=== PATIENT | female | born 1935 | race Caucasian/White ===

== ENCOUNTER 2019-05-13 09:15 | Observation (INO) ==
[2019-05-13] MEDS ORDERED: 0.9 % Sodium Chloride 1,000 ML IVC ONE (09:27)
--- NOTE | 2019-05-13 09:42 | Emergency Department Note ---
Disposition Clinical Impression: Altered mental status Qualifiers: Altered mental status type: disorientation Qualified Code(s): R41.0 - Disorientation, unspecified Fever Qualifiers: Fever type: unspecified Qualified Code(s): R50.9 - Fever, unspecified Disposition: Admitted As Inpatient Condition: Fair Referrals: Julito Kim MD [Primary Care Provider] - Forms: ED Satisfaction Letter Time of Disposition: 13:04 Altered Mental Status HPI - General Chief Complaint: ED Altered Mental Status Stated Complaint: AMS Time Seen by Provider: 05/13/19 09:17 Source: patient, EMS, other (care home reported) Mode of arrival: EMS Limitations: no limitations Nursing Notes Reviewed: Yes Vital Signs Reviewed: Yes - History of Present Illness complaint: altered mental status, weakness 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 She was seen in bed throat after 7:00 and then a little while later when he went by again she was on the floor. Patient knows that she ended up on the floor which she cannot really explain why what happened. Here in the form the patient is not complaining of any pain anywhere.) - Related Data Home Medications Medication Instructions Recorded Confirmed Phenytoin ER [Dilantin ER] 100 mg PO TID 04/22/16 05/13/19 Loratadine [Allergy Relief] 10 mg PO DAILY 02/16/18 05/13/19 Aspirin [Lo-Dose Aspirin EC] 81 mg PO DAILY 05/13/19 05/13/19 Lisinopril [Zestril] 10 mg PO DAILY 05/13/19 05/13/19 Sertraline [Zoloft] 25 mg PO DAILY 05/13/19 05/13/19 Allergies Allergy/AdvReac Type Severity Reaction Status Date / Time aspirin AdvReac See Verified 02/16/18 12:58 Comments All systems ED: reviewed and negative except as stated. ENT ED: Denies: ear pain, congestion Cardiovascular: Denies: chest pain Respiratory: Denies: dyspnea Gastrointestinal: Denies: abdominal pain, nausea, vomiting Musculoskeletal: Denies: back pain Neurological: Denies: headache Past Medical History - Past Medical History Attestation: Yes The following information was validated with the patient. Source: patient, old records reviewed, nursing notes reviewed Medical history: Reports: CVA, dementia, GERD, hyperlipidemia, hypertension, seizures Surgical history: Reports: cholecystectomy, hysterectomy Psychiatric history: Reports: no psych history - Social History Smoking Status: Never smoker Smokeless Tobacco Status: No Alcohol use: Reports: none Drug use: Reports: none Physical Exam - General Limitations: no limitations General appearance: other (Patient is obviously tired and a little groggy but will answer questions appropriately and follows commands appropriately.) - Head Head exam: atraumatic, normocephalic, normal inspection - Eye Eye exam: Present: normal appearance, PERRL, EOMI. Absent: scleral icterus, conjunctival injection - ENT ENT exam: normal exam, normal oropharynx, mucous membranes moist, normal external ear exam - Neck Neck exam: Present: normal inspection, full ROM, trachea midline. Absent: meni ngismus - Chest Chest inspection: Present: normal inspection, symmetric chest wall rise. Absent: tenderness - Respiratory Respiratory exam: Present: normal lung sounds bilaterally. Absent: respiratory distress, wheezes - Cardiovascular Cardiovascular exam: Present: regular rate, normal rhythm, normal heart sounds - Abdominal Exam Abdominal exam: Present: soft, Non-Tender, normal bowel sounds - Extremities Exam Extremities exam: Present: normal inspection. Absent: pedal edema - Neurological Exam Neurological exam: Present: alert, other (Generalized weakness that is nonfocal) - Psychiatric Psychiatric exam: Present: normal affect, normal mood - Skin Skin exam: Present: warm, dry. Absent: rash Course Course Narrative: [facility] Apparently the downtime was short lived because she was just seen in her bed shortly before being found on the floor. She felt warm to me so we rechecked her temperature rectally and she was 100.5. I am not finding anything that looks like a focal neuro deficit to make me think stroke. I suspect this is probably related to whatever's causing the fever. We will get a workup going on the patient and disposition will be based on diagnostic results and reevaluation. - Reevaluation(s) Reevaluation #1: Lab work came back not really sure me a source of infection. Urine is okay. Chest x-ray is clear. White count is okay. Lactate is good. Patient seemed to be improving but then seemed to become confused again. Repeat temperature rectally was 100.1. I had already Spoken with Dr. Ocasio, the hospitalist and arrange to have the patient admitted while source was determined. Initially we were not to start any antibiotics. However the patient seemed a little bit more confused so I went ahead and did an LP. The fluid looked clear to the eye. They will be running that fluid here. Has to be sent [facility] to [facility]. This could create a long delay so rather than wait I went ahead and empirically gave her a gram of Rocephin and a dose of acyclovir. Patient will still be admitted to the hospital. Time: 13:00 - Consultations Consultation #1: Dr. Ocasio, hospitalist. I discussed case with the hospitalist. He accepted the patient for admission. Time: 11:40 Vital Signs Temperature 99.6 F 05/13/19 09:16 Pulse Rate 97 05/13/19 09:16 Respiratory Rate 17 05/13/19 09:16 Blood Pressure 147/68 05/13/19 09:16 O2 Sat by Pulse Oximetry 95 05/13/19 09:16 Temperature 100.5 F H 05/13/19 09:54 Pulse Rate 92 05/13/19 12:59 Respiratory Rate 20 05/13/19 12:59 Blood Pressure 143/69 05/13/19 12:59 O2 Sat by Pulse Oximetry 98 05/13/19 12:59 Oxygen Delivery Oxygen Delivery Nasal Cannula Procedures - Lumbar Puncture Patient Position: left lateral decubitus Skin Prep: Povidone-Iodine 1% Local Anesthetic: lidocaine 1% Spinal Needle Gauge: 20G Interspace Used: L3-L4 Fluid Initially Obtained: clear Complications: none Altered Mental Status - Medical Records Medical records reviewed: Yes I reviewed the patient's medical records. - Lab Data Lab results reviewed: Yes I reviewed the patient's lab results. Result diagrams: 05/13/19 09:53 05/13/19 09:53 Lab Results 05/13/19 05/13/19 05/13/19 Range/Units 09:40 09:53 09:53 WBC 6.1 (4.3-11.1) K/mcL RBC 4.49 (3.82-4.97) M/mcL Hgb 14.3 (11.5-15.4) g/dL Hct 42.5 (35.3-44.9) % MCV 94.7 (83.0-100.0) fL MCH 31.8 (28.0-33.3) pg MCHC 33.6 (31.6-35.5) g/dL RDW 13.9 (11.5-14.5) % Plt Count 152 (140-400) K/mcL MPV 9.1 L (9.4-12.4) fL Immature Gran % 0.7 (0-4) % Seg Neutrophils % 81.3 % Lymphocytes % 11.6 % Monocytes % 5.2 % Eosinophils % 0.7 % Basophils % 0.5 % Neutrophils # 5.0 (1.6-8.9) K/mcL Lymphocytes # 0.7 (0.6-4.6) K/mcL Monocytes # 0.3 (0.0-1.3) K/mcL Eosinophils # 0.0 (0.0-0.6) K/mcL Basophils # 0.0 (0.0-0.2) K/mcL PT 12.2 H (9.4-12.1) Seconds INR 1.1 APTT 44.5 H (26.0-36.0) Seconds Sodium (136-145) mEq/L Potassium (3.5-5.1) mEq/L Chloride (98-107) mEq/L Carbon Dioxide (23-29) mEq/L BUN (8-23) mg/dL Creatinine (0.60-1.20) mg/dL Est GFR ( Amer) (> 60) Est GFR (Non-Af Amer) (> 60) BUN/Creatinine Ratio (6-26) Glucose (70-105) mg/dL Calculated Osmolality (280-300) Lactic Acid (0.5-2.2) mmol/L Calcium (8.6-10.3) mg/dL Total Bilirubin (0.3-1.0) mg/dL Direct Bilirubin (0.0-0.2) mg/dL Indirect Bilirubin (0.0-1.2) mg/dL AST (13-39) Units/L ALT (7-52) Units/L Alkaline Phosphatase (34-104) Units/L Troponin I (< 0.04) ng/mL B-Natriuretic Peptide (Less than 100) pg/mL Serum Total Protein (6.4-8.9) g/dL Albumin (3.5-5.7) g/dL Globulin (2.4-3.5) g/dL Albumin/Globulin Ratio (1.1-2.2) Urine Color Light Yellow (Yellow) Urine Clarity Clear (Clear) Urine pH 8.5 H (5.0-8.0) pH Units Ur Specific [place] 1.020 (1.010-1.025) Urine Protein Negative (Neg-Trace) mg/dL Urine Glucose (UA) Normal (Normal) mg/dL Urine Ketones Negative (Negative) mg/dL Urine Blood Trace-intact H (Negative) Urine Nitrite Negative (Negative) Urine Bilirubin Negative (Negative) Urine Urobilinogen Normal (Normal) mg/dL Ur Leukocyte Esterase Negative (Negative) Urine Microscopic RBC 3-5 H (0-3) per hpf Urine Microscopic WBC 0-3 (0-3) per hpf Ur Squamous Epith Cells Few (None-Few) per lpf Ur Culture Indicated? NO (NO) 05/13/19 05/13/19 05/13/19 Range/Units 09:53 09:53 09:53 WBC (4.3-11.1) K/mcL RBC (3.82-4.97) M/mcL Hgb (11.5-15.4) g/dL Hct (35.3-44.9) % MCV (83.0-100.0) fL MCH (28.0-33.3) pg MCHC (31.6-35.5) g/dL RDW (11.5-14.5) % Plt Count (140-400) K/mcL MPV (9.4-12.4) fL Immature Gran % (0-4) % Seg Neutrophils % % Lymphocytes % % Monocytes % % Eosinophils % % Basophils % % Neutrophils # (1.6-8.9) K/mcL Lymphocytes # (0.6-4.6) K/mcL Monocytes # (0.0-1.3) K/mcL Eosinophils # (0.0-0.6) K/mcL Basophils # (0.0-0.2) K/mcL PT (9.4-12.1) Seconds INR APTT (26.0-36.0) Seconds Sodium 139 (136-145) mEq/L Potassium 4.2 (3.5-5.1) mEq/L Chloride 104 (98-107) mEq/L Carbon Dioxide 27 (23-29) mEq/L BUN 15 (8-23) mg/dL Creatinine 0.71 (0.60-1.20) mg/dL Est GFR ( Amer) > 60 (> 60) Est GFR (Non-Af Amer) > 60 (> 60) BUN/Creatinine Ratio 21 (6-26) Glucose 119 H (70-105) mg/dL Calculated Osmolality 290 (280-300) Lactic Acid 1.0 (0.5-2.2) mmol/L Calcium 9.0 (8.6-10.3) mg/dL Total Bilirubin 0.6 (0.3-1.0) mg/dL Direct Bilirubin 0.1 (0.0-0.2) mg/dL Indirect Bilirubin 0.5 (0.0-1.2) mg/dL AST 18 (13-39) Units/L ALT 14 (7-52) Units/L Alkaline Phosphatase 120 H (34-104) Units/L Troponin I 0.04 H* (< 0.04) ng/mL B-Natriuretic Peptide 404 H (Less than 100) pg/mL Serum Total Protein 6.6 (6.4-8.9) g/dL Albumin 4.1 (3.5-5.7) g/dL Globulin 2.5 (2.4-3.5) g/dL Albumin/Globulin Ratio 1.6 (1.1-2.2) Urine Color (Yellow) Urine Clarity (Clear) Urine pH (5.0-8.0) pH Units Ur Specific [place] (1.010-1.025) Urine Protein (Neg-Trace) mg/dL Urine Glucose (UA) (Normal) mg/dL Urine Ketones (Negative) mg/dL Urine Blood (Negative) Urine Nitrite (Negative) Urine Bilirubin (Negative) Urine Urobilinogen (Normal) mg/dL Ur Leukocyte Esterase (Negative) Urine Microscopic RBC (0-3) per hpf Urine Microscopic WBC (0-3) per hpf Ur Squamous Epith Cells (None-Few) per lpf Ur Culture Indicated? (NO) 05/13/19 Range/Units 11:55 WBC (4.3-11.1) K/mcL RBC (3.82-4.97) M/mcL Hgb (11.5-15.4) g/dL Hct (35.3-44.9) % MCV (83.0-100.0) fL MCH (28.0-33.3) pg MCHC (31.6-35.5) g/dL RDW (11.5-14.5) % Plt Count (140-400) K/mcL MPV (9.4-12.4) fL Immature Gran % (0-4) % Seg Neutrophils % % Lymphocytes % % Monocytes % % Eosinophils % % Basophils % % Neutrophils # (1.6-8.9) K/mcL Lymphocytes # (0.6-4.6) K/mcL Monocytes # (0.0-1.3) K/mcL Eosinophils # (0.0-0.6) K/mcL Basophils # (0.0-0.2) K/mcL PT (9.4-12.1) Seconds INR APTT (26.0-36.0) Seconds Sodium (136-145) mEq/L Potassium (3.5-5.1) mEq/L Chloride (98-107) mEq/L Carbon Dioxide (23-29) mEq/L BUN (8-23) mg/dL Creatinine (0.60-1.20) mg/dL Est GFR ( Amer) (> 60) Est GFR (Non-Af Amer) (> 60) BUN/Creatinine Ratio (6-26) Glucose (70-105) mg/dL Calculated Osmolality (280-300) Lactic Acid (0.5-2.2) mmol/L Calcium (8.6-10.3) mg/dL Total Bilirubin (0.3-1.0) mg/dL Direct Bilirubin (0.0-0.2) mg/dL Indirect Bilirubin (0.0-1.2) mg/dL AST (13-39) Units/L ALT (7-52) Units/L Alkaline Phosphatase (34-104) Units/L Troponin I 0.04 H* (< 0.04) ng/mL B-Natriuretic Peptide (Less than 100) pg/mL Serum Total Protein (6.4-8.9) g/dL Albumin (3.5-5.7) g/dL Globulin (2.4-3.5) g/dL Albumin/Globulin Ratio (1.1-2.2) Urine Color (Yellow) Urine Clarity (Clear) Urine pH (5.0-8.0) pH Units Ur Specific [place] (1.010-1.025) Urine Protein (Neg-Trace) mg/dL Urine Glucose (UA) (Normal) mg/dL Urine Ketones (Negative) mg/dL Urine Blood (Negative) Urine Nitrite (Negative) Urine Bilirubin (Negative) Urine Urobilinogen (Normal) mg/dL Ur Leukocyte Esterase (Negative) Urine Microscopic RBC (0-3) per hpf Urine Microscopic WBC (0-3) per hpf Ur Squamous Epith Cells (None-Few) per lpf Ur Culture Indicated? (NO) - Radiology Data Radiology results reviewed: Yes I reviewed the patient's radiology results. - EKG Data EKG attestation: Yes I reviewed and interpreted this EKG. EKG results narrative: Twelve-lead EKG performed at 9:21 AM. Ordered, reviewed and interpreted by ED physician shows sinus rhythm at a rate of 97. Left axis deviation. Good hour progression across precordium. No acute ischemic changes. Intervals are within normal limits. TPA Checklist - LKW: 3-4.5 hrs Add. Warnings/Precautions Patient/family understanding: The patient/family members have been counseled and understood the risk, benefit, and alternatives of treatment.
[2019-05-13 09:54] LABS: Bilirubin,Urine Negative (Negative); Blood,Urine Trace-intact (Negative); Clarity,Urine Clear (Clear); Color,Urine Light Yellow (Yellow); Glucose,Urine (UA) Normal (Normal); Ketones,Urine Negative (Negative); Leukocyte Esterase,Urine Negative (Negative); Nitrite,Urine Negative (Negative); PH,Urine 8.5 pH Units (5.0-8.0); Protein,Urine Negative (Neg-Trace); Urobilinogen,Urine Normal (Normal)
[2019-05-13 10:00] LABS: Basophils % 0.5 %; Eosinophils % 0.7 %; Hematocrit 42.5 % (35.3-44.9); Hemoglobin 14.3 g/dL (11.5-15.4); Immature Granulocytes % 0.7 % (0-4); Lymphocytes # 0.7 K/mcL (0.6-4.6); Lymphocytes % 11.6 %; Mean Corpuscular HGB Conc 33.6 g/dL (31.6-35.5); Mean Corpuscular Hemoglobin 31.8 pg (28.0-33.3); Mean Corpuscular Volume 94.7 fL (83.0-100.0); Mean Platelet Volume 9.1 fL (9.4-12.4); Monocytes # 0.3 K/mcL (0.0-1.3); Monocytes % 5.2 %; Platelet Count 152 K/mcL (140-400); Red Blood Count 4.49 M/mcL (3.82-4.97); Red Cell Distribution Width 13.9 % (11.5-14.5); Segmented Neutrophils % 81.3 %; White Blood Count 6.1 K/mcL (4.3-11.1)
[2019-05-13 10:09] LABS: INR 1.1; Prothrombin Time 12.2 Seconds (9.4-12.1)
[2019-05-13 10:12] LABS: Activated Partial Thrombo Time 44.5 Seconds (26.0-36.0)
[2019-05-13 10:17] LABS: Alanine Aminotransferase 14 Units/L (7-52); Albumin 4.1 g/dL (3.5-5.7); Albumin/Globulin Ratio 1.6 (1.1-2.2); Alkaline Phosphatase 120 Units/L (34-104); Aspartate Amino Transferase 18 Units/L (13-39); BUN/Creatinine Ratio 21 (6-26); Bilirubin,Direct 0.1 mg/dL (0.0-0.2); Bilirubin,Indirect 0.5 mg/dL (0.0-1.2); Bilirubin,Total 0.6 mg/dL (0.3-1.0); Blood Urea Nitrogen 15 mg/dL (8-23); Carbon Dioxide 27 mEq/L (23-29); Chloride 104 mEq/L (98-107); Globulin 2.5 g/dL (2.4-3.5); Glucose 119 mg/dL (70-105); Osmolality,Calculated 290 (280-300); Potassium 4.2 mEq/L (3.5-5.1); Sodium 139 mEq/L (136-145); Total Protein 6.6 g/dL (6.4-8.9); eGFR For African Americans > 60 (> 60); eGFR For Non-African Americans > 60 (> 60)
[2019-05-13 10:33] LABS: Troponin I 0.04 ng/mL (< 0.04)
[2019-05-13 10:36] LABS: Squamous Epithelial Cell,Urine Few per lpf (None-Few); WBC,Urine 0-3 per hpf (0-3)
[2019-05-13] MEDS ORDERED: 0.9 % Sodium Chloride 1,000 ML IVC SCH ×2 (11:30→13:59)
[2019-05-13] MEDS ORDERED: Acyclovir 500 MG in D5% in Water 100 ML IVPB ONE ×3 (12:57→13:59)
[2019-05-13] MEDS ORDERED: Acetaminophen 650 MG RECTAL SUPP RC ONE (12:58)
[2019-05-13 13:26] LABS: Glucose,CSF 71 mg/dL (40-70); Total Protein,CSF 71 mg/dL (15-45)
[2019-05-13 13:58] LABS: Appearance,CSF Clear (Clear)
[2019-05-13] MEDS ORDERED: Naloxone 0.4 MG/ML INJ IVP PRN (13:59)
[2019-05-13 14:00] LABS: Red Blood Cell,CSF < 0.002 M/mcL
[2019-05-13] MEDS: 0.9 % Sodium Chloride 1,000 ML IVC SCH ×2 (14:57→19:54)
[2019-05-14] MEDS: 0.9 % Sodium Chloride 1,000 ML IVC SCH (01:37)
[2019-05-14 06:51] LABS: Basophils % 0.5 %; Eosinophils # 0.2 K/mcL (0.0-0.6); Hematocrit 39.2 % (35.3-44.9); Hemoglobin 12.9 g/dL (11.5-15.4); Immature Granulocytes % 0.3 % (0-4); Lymphocytes # 1.3 K/mcL (0.6-4.6); Lymphocytes % 21.3 %; Mean Corpuscular HGB Conc 32.9 g/dL (31.6-35.5); Mean Corpuscular Volume 97.3 fL (83.0-100.0); Mean Platelet Volume 9.8 fL (9.4-12.4); Monocytes # 0.7 K/mcL (0.0-1.3); Monocytes % 11.4 %; Neutrophils # 3.8 K/mcL (1.6-8.9); Platelet Count 126 K/mcL (140-400); Red Blood Count 4.03 M/mcL (3.82-4.97); Red Cell Distribution Width 14.3 % (11.5-14.5); Segmented Neutrophils % 62.5 %; White Blood Count 6.1 K/mcL (4.3-11.1)
[2019-05-14 07:03] LABS: BUN/Creatinine Ratio 21 (6-26); Blood Urea Nitrogen 13 mg/dL (8-23); Calcium 8.5 mg/dL (8.6-10.3); Carbon Dioxide 24 mEq/L (23-29); Chloride 107 mEq/L (98-107); Glucose 94 mg/dL (70-105); Osmolality,Calculated 286 (280-300); Potassium 3.6 mEq/L (3.5-5.1); Sodium 138 mEq/L (136-145); eGFR For African Americans > 60 (> 60); eGFR For Non-African Americans > 60 (> 60)
[2019-05-14] MEDS: Aspirin Enteric Coated 81 MG Tablet PO SCH (09:15)
--- NOTE | 2019-05-14 15:20 | Internal Med History&Physical ---
Date of Encounter: 05/14/19 Time of Encounter: 14:45 Assessment and Plan (1) Syncope Current visit: Yes Status: Acute Etiology not obvious. Orthostatic vital signs will be checked. Telemetry monitoring will be done. Further workup done as needed. Qualifiers: Syncope type: unspecified Qualified Code(s): R55 - Syncope and collapse (2) Fall Current visit: Yes Status: Acute Brain MRI will be done to further evaluate. PT and OT evaluations been ordered. Qualifiers: Encounter type: initial encounter Qualified Code(s): W19.XXXA - Unspecified fall, initial encounter (3) Altered mental status Current visit: Yes Status: Acute Baseline unknown. MMSE exam will be done. Qualifiers: Altered mental status type: disorientation Qualified Code(s): R41.0 - Disorientation, unspecified (4) Conjunctivitis Current visit: Yes Status: Acute TobraDex eyedrops will be given for right eye infection. Qualifiers: Conjunctivitis type: acute Acute conjunctivitis type: unspecified Laterality: right Qualified Code(s): H10.31 - Unspecified acute conjunctivitis, right eye Internal Medicine - H&P: HPI Chief complaint: Fall with syncope Admitted From: Emergency Dept Plans for Post Hospital Care: Home History of present illness: Ms. Rawls is a 83 year old female who was brought to emergency room after she was found on the floor at the assisted living facility where she resides. She does not remember any details about the fall or transport to the hospital. Emergency room workup included LP which showed unremarkable findings. She had fever spike to 100.8 shortly after transfer to [facility]. She was admitted to [facility] for ongoing care needs. She states she feels back to her baseline now. She knows her location and gives appropriate answers to questions. She reports she was diagnosed with seizure disorder many years ago but her last seizure was over one year ago. She reports she had a "stroke" in the past without permanent neurologic sequelae. Past Med Surg Social Fam HX - Past Medical History Medical history: CVA, dementia, GERD, hyperlipidemia, hypertension, seizures Psychiatric history: no psych history - Past Surgical History Surgical History: cholecystectomy, hysterectomy - Social History Smoking Status: Never smoker Smokeless Tobacco Status: No Alcohol use: none Drug use: none Internal Medicine - H&P: Meds Phenytoin ER [Dilantin ER] 100 mg PO TID 04/22/16 [History] Loratadine [Allergy Relief] 10 mg PO DAILY 02/16/18 [History] Aspirin [Lo-Dose Aspirin EC] 81 mg PO DAILY 05/13/19 [History] Lisinopril [Zestril] 10 mg PO DAILY 05/13/19 [History] Sertraline [Zoloft] 25 mg PO DAILY 05/13/19 [History] Allergy/AdvReac Type Severity Reaction Status Date / Time aspirin AdvReac See Verified 02/16/18 12:58 Comments All Systems PM: A 10-system review of systems was performed and is negative for pertinent findings except as documented above in the HPI. Review of systems: Gen.: She states her weight is been stable for several years Cardiovascular: She thinks she has a diagnosis of hypertension. She denies [place] heart failure angina DVT or pulmonary embolus Respiratory: She is a lifelong nonsmoker and denies chronic lung disease GI: She denies disorders of her liver gallbladder or exocrine pancreas : She denies hematuria dysuria or kidney stones Neurologic: As per history of present illness Endocrine: She denies diabetes thyroid disease or hyperlipidemia Hematology/oncology: She denies blood disorders cancers or anemia Psychiatric: She states her several months ago and she feels depressed. She denies other mental health diagnoses. [place] skeletal: She denies arthritis gout or other bone joint or muscle disorders. - Constitutional Vitals: Temp Pulse Resp BP Pulse Ox 98.7 F 72 18 138/66 99 05/14/19 11:05 05/14/19 11:05 05/14/19 11:05 05/14/19 11:05 05/14/19 11:05 Exam: Gen.: She is a well-developed well-nourished female lying quietly in bed who appears in no acute distress HEENT: Head is atraumatic and normocephalic. Eyes: EOMI. There is no scleral icterus. She has slight right eye conjunctival erythema with mucopurulent drainage. Mouth: Mucosa is moist. Neck: Supple and nontender. There is no thyromegaly or adenopathy noted. Heart: Regular without murmurs gallops or ectopics Lungs: No wheezes or crackles are heard. Abdomen: Soft and nontender. No masses or guarding are noted. Extremities: There is no cyanosis edema or clubbing noted. Dorsalis pedis and posttibial pulses are trace to 1+ palpable bilaterally. Neurologic: Mental status: She is talkative and a fair to good historian. She does not remember some details of her past history. Cranial nerves: Smile is symmetric. Forehead wrinkles bilaterally. Tongue protrudes midline. EOMI. Motor: There is no pronator drift. Cerebellar: Finger to nose is intact bilaterally. Skin: Warm and dry Internal Med - H&P Results - Labs CBC & Chem 7: 05/14/19 06:00 05/14/19 06:00 Labs: Short CBC 05/14/19 Range/Units 06:00 WBC 6.1 (4.3-11.1) K/mcL Hgb 12.9 (11.5-15.4) g/dL Hct 39.2 (35.3-44.9) % Plt Count 126 L (140-400) K/mcL Neutrophils # 3.8 (1.6-8.9) K/mcL BMP 05/14/19 06:00 Sodium 138 Potassium 3.6 Chloride 107 Carbon Dioxide 24 BUN 13 Creatinine 0.63 Glucose 94 Calcium 8.5 L Cardiac Enzymes 05/13/19 05/13/19 05/14/19 Range/Units 17:47 23:20 06:00 Troponin I 0.05 H* 0.05 H* 0.03 (< 0.04) ng/mL - Impressions ITS Impressions Chest X-Ray 05/13/19 09:26 IMPRESSION: No acute cardiopulmonary process D/ / Dougie Coombs MD / Dougie Coombs MD Interpreting Provider: Dougie Coombs MD Head CT 05/13/19 09:26 IMPRESSION: No acute intracranial abnormality. D/ / Srikanth Monson MD / Srikanth Monson MD Interpreting Provider: Srikanth Monson MD
--- NOTE | 2019-05-14 16:03 | Electrocardiograph Report ---
[place] [id number] Test Date: 2019-05-13 Pat Name: Shira Rawls Department: EDP-16 Room: [facility] Gender: F Tax Examiner: : 1935 Requested By: Jackson Richardson Order Number: [id number] Reading MD: Rene Elizondo Measurements Intervals Thelma Rate: 97 P: 204 WA: 240 QRS: -33 QRSD: 97 T: 75 QT: 354 QTc: 450 Interpretive Statements Sinus or ectopic atrial rhythm Prolonged WA interval Left axis deviation Electronically Signed On 05-14-2019 16:02:11 EDT by Rene Elizondo
[2019-05-14] MEDS: Tobramycin/Dex Opth DROPS 2.5 ML BOTTLE RIGHT EYE SCH ×2 (17:21→23:48)
[2019-05-15] MEDS: Aspirin Enteric Coated 81 MG Tablet PO SCH (08:01)
[2019-05-15] MEDS: Tobramycin/Dex Opth DROPS 2.5 ML BOTTLE RIGHT EYE SCH ×3 (08:02→22:06)
--- NOTE | 2019-05-15 12:33 | Internal Med Progress Note ---
Date of Encounter: 05/15/19 Time of Encounter: 12:20 - Assessment and plan (1) Syncope Current Visit: Yes Status: Acute Assessment and plan: May 15. Now asymptomatic. Orthostatic vital signs unremarkable. Telemetry remained stable. Qualifiers: Syncope type: unspecified Qualified Code(s): R55 - Syncope and collapse (2) Fall Current Visit: Yes Status: Acute Assessment and plan: May 15. Brain MRI showed multiple remote supratentorial and infratentorial microhemorrhages suggesting long-standing hypertension. There was diffuse cerebral volume loss and moderate chronic small vessel ischemic changes with remote lacunar infarct in the omar. PT and OT evaluations have been ordered. Qualifiers: Encounter type: initial encounter Qualified Code(s): W19.XXXA - Unspecified fall, initial encounter (3) Altered mental status Current Visit: Yes Status: Acute Assessment and plan: May 15. Mental status appears likely at baseline. MMSE showed score 12/30. Qualifiers: Altered mental status type: disorientation Qualified Code(s): R41.0 - Disorientation, unspecified (4) Conjunctivitis Current Visit: Yes Status: Acute Assessment and plan: May 15. Continue TobraDex. Qualifiers: Conjunctivitis type: acute Acute conjunctivitis type: unspecified Laterality: right Qualified Code(s): H10.31 - Unspecified acute conjunctivitis, right eye - Subjective Interval history: May 15. She has no new complaints and feels better - Constitutional Vitals: Temp Pulse Resp BP Pulse Ox 98.5 F 66 16 134/63 94 05/15/19 07:09 05/15/19 10:08 05/15/19 07:09 05/15/19 10:08 05/15/19 08:04 Exam: She is resting comfortably in bed and appears in no acute distress. Her affect is cheerful. Right eye shows decreasing conjunctivitis. I reviewed her medications and lab results. Internal Medicine: Result - Labs CBC & Chem 7: 05/14/19 06:00 05/14/19 06:00 - ABG Interpretation ABG results: PT/INR, D-dimer PT 12.2 Seconds (9.4-12.1) H 05/13/19 09:53 - Impressions Impressions Brain MRI 05/15/19 06:30 IMPRESSION: 1. No acute intracranial process identified. 2. Multiple remote supratentorial and infratentorial microhemorrhages suggesting the sequelae of longstanding hypertension. 3. Diffuse cerebral volume loss and moderate chronic small vessel ischemic changes. 4. Remote lacunar infarct within the omar. D/ / Oneil Lewis MD / Oneil Lewis MD Interpreting Provider: Oneil Lewis MD Consult Discharge Plan - Plan Referrals: Julito Kim MD [Primary Care Provider] - 1 week
[2019-05-16] MEDS: Aspirin Enteric Coated 81 MG Tablet PO SCH (09:11)
[2019-05-16] MEDS: Tobramycin/Dex Opth DROPS 2.5 ML BOTTLE RIGHT EYE SCH ×3 (09:21→22:57)
[2019-05-16] MEDS ORDERED: ALPRAZolam 0.25 MG TABLET PO ONE (14:54)
[2019-05-16] MEDS ORDERED: *HR* LORazepam 2 MG/ML VIAL IVP ONE (15:13)
--- NOTE | 2019-05-16 17:52 | Internal Med Progress Note ---
Date of Encounter: 05/16/19 Time of Encounter: 17:40 - Assessment and plan (1) Syncope Current Visit: Yes Status: Acute Assessment and plan: May 15. Now asymptomatic. Orthostatic vital signs unremarkable. Telemetry remained stable. Qualifiers: Syncope type: unspecified Qualified Code(s): R55 - Syncope and collapse (2) Fall Current Visit: Yes Status: Acute Assessment and plan: May 15. Brain MRI showed multiple remote supratentorial and infratentorial microhemorrhages suggesting long-standing hypertension. There was diffuse cerebral volume loss and moderate chronic small vessel ischemic changes with remote lacunar infarct in the omar. PT and OT evaluations have been ordered. Qualifiers: Encounter type: initial encounter Qualified Code(s): W19.XXXA - Unspecified fall, initial encounter (3) Altered mental status Current Visit: Yes Status: Acute Assessment and plan: May 15. Mental status appears likely at baseline. MMSE showed score 12/30. May 16. Significant change in the past 24 hours. CSF culture shows 2 different gram-positive cocci. She will be started empirically on IV vancomycin and Rocephin with lactobacillus. I spoke with the [facility] lab and was told CSF has been sent for PCR testing for HSV and enteroviruses. She will also be given empiric IV acyclovir pending test results. Qualifiers: Altered mental status type: disorientation Qualified Code(s): R41.0 - Disorientation, unspecified (4) Conjunctivitis Current Visit: Yes Status: Acute Assessment and plan: May 15. Continue TobraDex. Qualifiers: Conjunctivitis type: acute Acute conjunctivitis type: unspecified Laterality: right Qualified Code(s): H10.31 - Unspecified acute conjunctivitis, right eye - Subjective Interval history: May 15. She has no new complaints and feels better May 16. She has become more agitated and confused. Her daughter is in the room and reports this is a marked difference from her mother's baseline. Daughter reports her mother was walking in the hallways at the [facility] last week having gener ally appropriate conversations. - Constitutional Vitals: Temp Pulse Resp BP Pulse Ox 98.5 F 97 18 177/104 98 05/16/19 15:28 05/16/19 15:28 05/16/19 15:28 05/16/19 15:28 05/16/19 15:28 Exam: She is resting comfortably in bed. She appears slightly agitated. Neck shows no meningeal signs. Conversation is confused. There is no dysarthria or altered level of consciousness. I reviewed her medications and lab results. Internal Medicine: Result - Labs CBC & Chem 7: 05/14/19 06:00 05/14/19 06:00 - ABG Interpretation ABG results: PT/INR, D-dimer PT 12.2 Seconds (9.4-12.1) H 05/13/19 09:53 Consult Discharge Plan - Plan Referrals: Julito Kim MD [Primary Care Provider] - 1 week
[2019-05-16] MEDS: cefTRIAXone 2,000 MG in Water for inj. (sterile) 20 ML IVP SCH (18:23)
[2019-05-16] MEDS: Acyclovir 750 MG in D5% in Water 250 ML IVPB SCH (18:49)
[2019-05-16] MEDS: Lactobacillus 1 EACH CAP.SPRINK PO SCH (20:11)
[2019-05-17] MEDS: Acyclovir 750 MG in D5% in Water 250 ML IVPB SCH ×3 (02:45→18:48)
[2019-05-17 06:26] LABS: Basophils % 0.4 %; Eosinophils # 0.3 K/mcL (0.0-0.6); Eosinophils % 3.7 %; Hematocrit 36.3 % (35.3-44.9); Hemoglobin 12.7 g/dL (11.5-15.4); Immature Granulocytes % 0.1 % (0-4); Lymphocytes # 1.2 K/mcL (0.6-4.6); Mean Corpuscular Hemoglobin 32.5 pg (28.0-33.3); Mean Corpuscular Volume 92.8 fL (83.0-100.0); Mean Platelet Volume 9.6 fL (9.4-12.4); Monocytes # 0.8 K/mcL (0.0-1.3); Monocytes % 12.3 %; Neutrophils # 4.4 K/mcL (1.6-8.9); Platelet Count 143 K/mcL (140-400); Red Blood Count 3.91 M/mcL (3.82-4.97); Red Cell Distribution Width 13.8 % (11.5-14.5); Segmented Neutrophils % 65.5 %; White Blood Count 6.7 K/mcL (4.3-11.1)
[2019-05-17 06:45] LABS: Alanine Aminotransferase 15 Units/L (7-52); Albumin 3.4 g/dL (3.5-5.7); Albumin/Globulin Ratio 1.7 (1.1-2.2); Alkaline Phosphatase 94 Units/L (34-104); Aspartate Amino Transferase 19 Units/L (13-39); BUN/Creatinine Ratio 18 (6-26); Bilirubin,Total 0.4 mg/dL (0.3-1.0); Blood Urea Nitrogen 13 mg/dL (8-23); Calcium 8.4 mg/dL (8.6-10.3); Carbon Dioxide 28 mEq/L (23-29); Chloride 104 mEq/L (98-107); Glucose 105 mg/dL (70-105); Osmolality,Calculated 288 (280-300); Potassium 3.5 mEq/L (3.5-5.1); Sodium 139 mEq/L (136-145); Total Protein 5.4 g/dL (6.4-8.9); eGFR For African Americans > 60 (> 60); eGFR For Non-African Americans > 60 (> 60)
[2019-05-17 08:11] LABS: HSV 2 Glycoprotein G IgG CSF 0.02 IV (<=0.89)
[2019-05-17] MEDS: Lactobacillus 1 EACH CAP.SPRINK PO SCH ×2 (10:15→19:57)
[2019-05-17] MEDS: Aspirin Enteric Coated 81 MG Tablet PO SCH (10:15)
[2019-05-17] MEDS: Tobramycin/Dex Opth DROPS 2.5 ML BOTTLE RIGHT EYE SCH ×3 (10:24→23:11)
--- NOTE | 2019-05-17 12:36 | Internal Med Progress Note ---
Date of Encounter: 05/17/19 Time of Encounter: 12:25 - Assessment and plan (1) Syncope Current Visit: Yes Status: Acute Assessment and plan: May 15. Now asymptomatic. Orthostatic vital signs unremarkable. Telemetry remained stable. Qualifiers: Syncope type: unspecified Qualified Code(s): R55 - Syncope and collapse (2) Fall Current Visit: Yes Status: Acute Assessment and plan: May 15. Brain MRI showed multiple remote supratentorial and infratentorial microhemorrhages suggesting long-standing hypertension. There was diffuse cerebral volume loss and moderate chronic small vessel ischemic changes with remote lacunar infarct in the omar. PT and OT evaluations have been ordered. May 17. Continue therapy intervention. Qualifiers: Encounter type: initial encounter Qualified Code(s): W19.XXXA - Unspecified fall, initial encounter (3) Altered mental status Current Visit: Yes Status: Acute Assessment and plan: May 15. Mental status appears likely at baseline. MMSE showed score 12/30. May 16. Significant change in the past 24 hours. CSF culture shows 2 different gram-positive cocci. She will be started empirically on IV vancomycin and Rocephin with lactobacillus. I spoke with the [facility] lab and was told CSF has been sent for PCR testing for HSV and enteroviruses. She will also be given empiric IV acyclovir pending test results. May 17. Remains confused but does awaken and answer questions with short answers. Overall less agitated today. Continue empiric antibiotics and acyclovir while awaiting CSF results. Qualifiers: Altered mental status type: disorientation Qualified Code(s): R41.0 - Disorientation, unspecified (4) Conjunctivitis Current Visit: Yes Status: Acute Assessment and plan: May 15. Continue TobraDex. Qualifiers: Conjunctivitis type: acute Acute conjunctivitis type: unspecified Laterality: right Qualified Code(s): H10.31 - Unspecified acute conjunctivitis, right eye - Subjective Interval history: May 15. She has no new complaints and feels better May 3. She has become more agitated and confused. Her daughter is in the room and reports this is a marked difference from her mother's baseline. Daughter reports her mother was walking in the hallways at the [facility] last week having generally appropriate conversations. May 4. No new problems have arisen. - Constitutional Vitals: Temp Pulse Resp BP Pulse Ox 98.1 F 90 20 143/94 94 05/17/19 10:35 05/17/19 10:35 05/17/19 10:35 05/17/19 10:35 05/17/19 10:35 Exam: She is resting comfortably in bed. She complains of some discomfort in her right shoulder. There is no redness, effusion, or pain on movement of the right shoulder. There are no meningeal signs on neck flexion. Heart is regular without murmurs gallops or ectopics. Lungs are clear anteriorly. Extremities show no edema. I reviewed her medications and lab results. Internal Medicine: Result - Labs CBC & Chem 7: 05/17/19 05:41 05/17/19 05:41 Labs: Short CBC 05/17/19 Range/Units 05:41 WBC 6.7 (4.3-11.1) K/mcL Hgb 12.7 (11.5-15.4) g/dL Hct 36.3 (35.3-44.9) % Plt Count 143 (140-400) K/mcL Neutrophils # 4.4 (1.6-8.9) K/mcL BMP 05/17/19 05:41 Sodium 139 Potassium 3.5 Chloride 104 Carbon Dioxide 28 BUN 13 Creatinine 0.74 Glucose 105 Calcium 8.4 L Liver Function 05/17/19 Range/Units 05:41 Total Bilirubin 0.4 (0.3-1.0) mg/dL AST 19 (13-39) Units/L ALT 15 (7-52) Units/L Alkaline Phosphatase 94 (34-104) Units/L Albumin 3.4 L (3.5-5.7) g/dL - ABG Interpretation ABG results: PT/INR, D-dimer PT 12.2 Seconds (9.4-12.1) H 05/13/19 09:53 Consult Discharge Plan - Plan Referrals: Julito Kim MD [Primary Care Provider] - 1 week
[2019-05-17] MEDS: *HR* LORazepam 2 MG/ML VIAL IVP PRN ×2 (16:11→22:45)
[2019-05-17] MEDS: cefTRIAXone 2,000 MG in Water for inj. (sterile) 20 ML IVP SCH (17:06)
[2019-05-18] MEDS: Acyclovir 750 MG in D5% in Water 250 ML IVPB SCH ×2 (03:01→11:44)
[2019-05-18 06:25] VITALS: BP 128/72
[2019-05-18] MEDS: Tobramycin/Dex Opth DROPS 2.5 ML BOTTLE RIGHT EYE SCH (08:25)
[2019-05-18] MEDS: Aspirin Enteric Coated 81 MG Tablet PO SCH (09:37)
[2019-05-18] MEDS: Lactobacillus 1 EACH CAP.SPRINK PO SCH (09:37)
--- NOTE | 2019-05-18 12:10 | Discharge Summary ---
Orders not resulted at time of discharge: Pending orders 05/13/19 09:53 Culture,Blood [] Stat 05/13/19 12:52 Culture,CSF [] Stat Gram Stain [] Stat HSV 1 Glycoprotein G IgG CSF Stat HSV 2 Glycoprotein G IgG CSF Stat 05/18/19 19:30 Vancomycin,Trough Timed Date of Encounter: 05/18/19 Time of Encounter: 09:45 - Discharge Diagnosis (1) Syncope Priority: Primary Status: Acute Qualifiers: Syncope type: unspecified Qualified Code(s): R55 - Syncope and collapse (2) Fall Priority: Secondary Status: Acute Qualifiers: Encounter type: initial encounter Qualified Code(s): W19.XXXA - Unspecified fall, initial encounter (3) Altered mental status Priority: Secondary Status: Acute Qualifiers: Altered mental status type: disorientation Qualified Code(s): R41.0 - Disorientation, unspecified (4) Conjunctivitis Priority: Secondary Status: Resolved Qualifiers: Conjunctivitis type: acute Acute conjunctivitis type: unspecified Laterality: right Qualified Code(s): H10.31 - Unspecified acute conjunctivitis, right eye Hospital course: Ms. Rawls is a 83 year old female who was brought to emergency room after she was found on the floor at the assisted living facility where she resides. She does not remember any details about the fall or transport to the hospital. Emergency room workup included LP which showed unremarkable initial findings. She had fever spike to 100.8 shortly after transfer to [facility]. She was admitted to [facility] for ongoing care needs. Initial orders were written by the emergency room physician. I saw her on May 14 and performed a history and physical. She had no further syncopal or near syncopal episodes. Telemetry remained stable. The cause of her syncopal episode at the [facility] was not determined. Brain MRI was done to further evaluate altered mental status and history of falls. The MRI showed no acute intracranial process with multiple remote supratentorial and infratentorial microhemorrhages suggesting long-standing hypertension. There was remote lacunar infarct within the omar and chronic small vessel ischemic changes. On May 16 there was worsening of mental status with more lethargy and agitation/confusion. CSF culture showed 2 different gram-positive cocci. One of them was Micrococcus luteus and the other one did not have final identification at time of transfer. She was started empirically on IV vancomycin and Rocephin with lactobacillus. I spoke with the [facility] lab and was told CSF had been sent for PCR testing for HSV and enterovirus. These results were pending at time of transfer. She was started on IV acyclovir empirically. She remained afebrile after the first hospital day with other vitals stable also. Follow-up labs showed no leukocytosis or left shift on differential. On May 18 there was no significant improvement in mental status. I spoke with the patient's daughter and recommended patient be transferred for further evaluation by neurology and/or ID. The daughter agreed to have her transferred to [facility]. - Time Spent with Patient Total time spent providing and/or coordinating discharge services: - Discharge Medications Prescriptions: No Action Phenytoin ER [Dilantin ER] 100 mg PO TID Loratadine [Allergy Relief] 10 mg PO DAILY Lisinopril [Zestril] 10 mg PO DAILY Sertraline [Zoloft] 25 mg PO DAILY Aspirin [Lo-Dose Aspirin EC] 81 mg PO DAILY Home Medications: Phenytoin ER [Dilantin ER] 100 mg PO TID 04/22/16 [History] Loratadine [Allergy Relief] 10 mg PO DAILY 02/16/18 [History] Aspirin [Lo-Dose Aspirin EC] 81 mg PO DAILY 05/13/19 [History] Lisinopril [Zestril] 10 mg PO DAILY 05/13/19 [History] Sertraline [Zoloft] 25 mg PO DAILY 05/13/19 [History] Allergies/Adverse Reactions: Allergy/AdvReac Type Severity Reaction Status Date / Time aspirin AdvReac See Verified 02/16/18 12:58 Comments Date of admission: 05/13/19 13:13 Primary care physician: Julito Kim MD Consults: 05/13/19 14:16 Consult to Nutrition [CONS] Routine Comment: Consulting Provider: NUTRITION Reason for Dietary Consult: MST Score 05/14/19 15:15 Consult to Occupational Therapy [CONS] Routine Comment: Evaluate, develop and implement POC Reason for Consult: Frequent falls Does patient have active BEDREST order?: No Is patient medically & hemodynamically stable?: Yes Patient assessed for mobility or mobilized this visit?: Yes Consult to Physical Therapy [CONS] Routine Comment: Evaluate, develop and implement POC Reason for Consult: Frequent falls Does patient have active BEDREST order?: No Is patient medically & hemodynamically stable?: Yes Patient assessed for mobility or mobilized this visit?: Yes - Constitutional Vitals: Temp Pulse Resp BP Pulse Ox 98.6 F 86 16 128/72 94 05/18/19 06:21 05/18/19 06:21 05/18/19 06:21 05/18/19 06:21 05/18/19 06:21 - Patient Status Disposition: Transfer Other Condition: Fair - Discharge Instructions
[2019-05-19 08:27] LABS: HSV 1 Glycoprotein G IgG CSF 2.57 IV (<=0.89)
== END 2019-05-18 13:45 | disposition other institution (70) ==
LOC: INPPIK 09:15 → EMEROOPIK 09:15 → INPPIK 13:40
PROVIDERS: ADMIT Internal Medicine; ATTEND Internal Medicine

== ENCOUNTER 2019-06-28 13:04 | Inpatient (IN) ==
[2019-06-28] MEDS ORDERED: 0.9 % Sodium Chloride 1,000 ML IVC ONE (13:10)
[2019-06-28] MEDS ORDERED: cefTRIAXone 2,000 MG in 0.9 % Sodium Chloride Mini Bag 100 ML IVPB ONE (13:10)
--- NOTE | 2019-06-28 13:11 | Emergency Department Note ---
Disposition Clinical Impression: Altered mental status Qualifiers: Altered mental status type: transient alteration of awareness Qualified Code(s): R40.4 - Transient alteration of awareness Urinary tract infection Qualifiers: Urinary tract infection type: catheter-associated UTI Indwelling urinary catheter type: indwelling urethral catheter Encounter type: initial encounter Qualified Code(s): T83.511A - Infection and inflammatory reaction due to indwelling urethral catheter, initial encounter Disposition: Admitted As Inpatient Condition: Fair Referrals: Julito Kim MD [Primary Care Provider] - Forms: ED Satisfaction Letter Time of Disposition: 14:22 Altered Mental Status HPI - General Chief Complaint: ED General Medical Stated Complaint: AMS Time Seen by Provider: 06/28/19 13:07 Source: EMS, other (group home records, detention report.) Mode of arrival: EMS Limitations: altered mental status, physical limitation Nursing Notes Reviewed: Yes Vital Signs Reviewed: Yes - History of Present Illness HPI Narrative: Patient rash detention reportedly with decreased responsiveness since early a.m. She would open her eyes and shake her head yes and no to questions. She usually is reported to be confused with encephalopathy but able to be up in her wheelchair and conversing. They were not able to have any specific complaint from her and noted her vital signs to be normal. They reported that she specifically did not have headache, shortness of breath, dizziness, numbness, any pain or even "feeling bad". Vital signs show the detention report to benefit blood pressure 123/81, heart rate 93, respiratory rate of 16 and a temperature of 98.9. Patient arrives here by EMS will open her eyes and look about but otherwise is not talking and no further history is obtainable. The patient did have blood work obtained that included a CBC with white count of 8.5 and hemoglobin of 13.1. She had normal basic metabolic panel, calcium of 8.8 and an ammonia of 28. She has no indwelling Knapp catheter and I did not have a report of any urine being obtained. She was sent in for the decreased responsiveness and altered mental status. complaint: altered mental status, decreased responsiveness, weakness Onset (ago): hour(s) (7) Timing confirmed by: caregiver Pain Severity: none Consistency of Symptoms: constant Context: history psychiatric disease, other (Encephalopathy) - Related Data Home Medications Medication Instructions Recorded Confirmed Phenytoin ER [Dilantin ER] 100 mg PO TID 04/22/16 05/13/19 Loratadine [Allergy Relief] 10 mg PO DAILY 02/16/18 05/13/19 Aspirin [Lo-Dose Aspirin EC] 81 mg PO DAILY 05/13/19 05/13/19 Lisinopril [Zestril] 10 mg PO DAILY 05/13/19 05/13/19 Sertraline [Zoloft] 25 mg PO DAILY 05/13/19 05/13/19 Allergies Allergy/AdvReac Type Severity Reaction Status Date / Time aspirin AdvReac See Verified 02/16/18 12:58 Comments Limitations: ROS unobtainable due to patients medical condition Past Medical History - Past Medical History Source: old records reviewed, nursing notes reviewed Medical history: Reports: CVA, dementia, GERD, hyperlipidemia, hypertension, seizures, other (Encephalopathy) Surgical history: Reports: cholecystectomy, hysterectomy Psychiatric history: Reports: no psych history - Social History Smoking Status: Never smoker Smokeless Tobacco Status: No Alcohol use: Reports: none Drug use: Reports: none Physical Exam - General Limitations: altered mental status, physical limitation General appearance: in no apparent distress, lethargic - Head Head exam: atraumatic, normocephalic, normal inspection - Eye Eye exam: Present: normal appearance, PERRL, EOMI. Absent: scleral icterus, conjunctival injection - ENT ENT exam: normal exam, normal oropharynx, mucous membranes moist - Neck Neck exam: Present: normal inspection, full ROM, trachea midline. Absent: tenderness, meningismus, lymphadenopathy - Chest Chest inspection: Present: normal inspection, symmetric chest wall rise - Respiratory Respiratory exam: Present: normal lung sounds bilaterally. Absent: respiratory distress, wheezes, prolonged expiratory phase - Cardiovascular Cardiovascular exam: Present: regular rate, normal rhythm, normal heart sounds. Absent: tachycardia - Abdominal Exam Abdominal exam: Present: soft, Non-Tender, normal bowel sounds. Absent: tenderness, distention, guarding, rebound, rigidity - Extremities Exam Extremities exam: Present: normal inspection, normal capillary refill. Absent: tenderness, pedal edema, calf tenderness - Expanded Lower Extremity Exam Neurovascular/Tendon exam: Present: normal capillary refill Gait: not tested/not observed - Neurological Exam Neurological exam: Absent: alert, oriented X3 - Psychiatric Psychiatric exam: Present: flat affect. Absent: agitated, anxious - Skin Skin exam: Present: warm, dry, intact, normal color. Absent: diaphoresis, pallor Course Course Narrative: 1415: Current results are discussed with the patient's family. I noted that she was intermittently "talking out of her head" last night. They state that this is how she usually gets when she gets a urinary tract infection. She has been having recurrent urinary tract infections with indwelling Knapp catheter. She is been through several courses of antibiotics in the past month or 2. They questioned if the catheter should be removed. I did advise them that she should be observed with continued hydration and antibiotic coverage. The patient's daughter does confirm that she does not have any signed CODE STATUS at this time. She is therefore full code. I have placed a call to Dr. Aguiar to discuss the possibility for continued care at this facility. 1420: Dr. Aguiar is agreeable with observation of this patient. He would like to continue the IV fluids and Rocephin. He would like to have a trial of discontinuation of the Knapp catheter. Orders have been obtained for the patient's observation. Vital Signs Temperature 99.8 F H 06/28/19 13:05 Pulse Rate 98 06/28/19 13:05 Respiratory Rate 18 06/28/19 13:05 Blood Pressure 146/70 06/28/19 13:05 O2 Sat by Pulse Oximetry 94 06/28/19 13:05 Temperature 98.5 F 06/28/19 13:58 Pulse Rate 93 06/28/19 13:58 Respiratory Rate 18 06/28/19 13:58 Blood Pressure 145/66 06/28/19 13:58 O2 Sat by Pulse Oximetry 96 06/28/19 13:58 Oxygen Delivery Oxygen Delivery Room Air Altered Mental Status - Differential Diagnosis Likely: altered mental status, delirium, dementia, hypoglycemia, hyponatremia, psychiatric disease, sepsis - Medical Records Medical records reviewed: Yes I reviewed the patient's medical records. - Lab Data Lab results reviewed: Yes I reviewed the patient's lab results. Lab Results 06/28/19 06/28/19 06/28/19 Range/Units 13:20 13:20 13:25 PT 12.3 H (9.4-12.1) Seconds INR 1.1 APTT 39.1 H (26.0-36.0) Seconds Lactic Acid (0.5-2.2) mmol/L Total Bilirubin 0.6 (0.3-1.0) mg/dL Direct Bilirubin 0.1 (0.0-0.2) mg/dL Indirect Bilirubin 0.5 (0.0-1.2) mg/dL AST 18 (13-39) Units/L ALT 12 (7-52) Units/L Alkaline Phosphatase 146 H (34-104) Units/L Serum Total Protein 6.4 (6.4-8.9) g/dL Albumin 3.8 (3.5-5.7) g/dL Globulin 2.6 (2.4-3.5) g/dL Albumin/Globulin Ratio 1.5 (1.1-2.2) Urine Color Yellow (Yellow) Urine Clarity Slightly Cloudy A (Clear) Urine pH 8.5 H (5.0-8.0) pH Units Ur Specific [place] 1.015 (1.010-1.025) Urine Protein 30 H (Neg-Trace) mg/dL Urine Glucose (UA) Normal (Normal) mg/dL Urine Ketones Negative (Negative) mg/dL Urine Blood Negative (Negative) Urine Nitrite Positive A (Negative) Urine Bilirubin Negative (Negative) Urine Urobilinogen Normal (Normal) mg/dL Ur Leukocyte Esterase Moderate H (Negative) Urine Microscopic WBC TNTC H (0-3) per hpf Ur Squamous Epith Cells Few (None-Few) per lpf Amorphous Sediment Many H (Few) Urine Bacteria Many H (None-Few) per hpf Urine Mucus Moderate H (Few) Ur Culture Indicated? YES A (NO) Phenytoin 3.5 L (10.0-20.0) mcg/mL 06/28/19 Range/Units 13:50 PT (9.4-12.1) Seconds INR APTT (26.0-36.0) Seconds Lactic Acid 2.0 (0.5-2.2) mmol/L Total Bilirubin (0.3-1.0) mg/dL Direct Bilirubin (0.0-0.2) mg/dL Indirect Bilirubin (0.0-1.2) mg/dL AST (13-39) Units/L ALT (7-52) Units/L Alkaline Phosphatase (34-104) Units/L Serum Total Protein (6.4-8.9) g/dL Albumin (3.5-5.7) g/dL Globulin (2.4-3.5) g/dL Albumin/Globulin Ratio (1.1-2.2) Urine Color (Yellow) Urine Clarity (Clear) Urine pH (5.0-8.0) pH Units Ur Specific [place] (1.010-1.025) Urine Protein (Neg-Trace) mg/dL Urine Glucose (UA) (Normal) mg/dL Urine Ketones (Negative) mg/dL Urine Blood (Negative) Urine Nitrite (Negative) Urine Bilirubin (Negative) Urine Urobilinogen (Normal) mg/dL Ur Leukocyte Esterase (Negative) Urine Microscopic WBC (0-3) per hpf Ur Squamous Epith Cells (None-Few) per lpf Amorphous Sediment (Few) Urine Bacteria (None-Few) per hpf Urine Mucus (Few) Ur Culture Indicated? (NO) Phenytoin (10.0-20.0) mcg/mL - Radiology Data Radiology results reviewed: Yes I reviewed the patient's radiology results. Single view chest x-ray is performed. This does not demonstrate evidence for infiltrate, effusion, pneumothorax, foreign body or heart failure. The cardiac silhouette is normal. I do not see abnormality to the osseous structures of the chest. This is on my interpretation. CT head is performed. This is reviewed on bone and soft tissue windows. There is no evidence for acute intracranial bleed, shift, mass or edema. There is no fracture evident. This is on my interpretation. Impressions Head CT 06/28/19 13:07 IMPRESSION: No acute intracranial abnormality. Sequela of chronic small vessel ischemic change Bilateral cerumen plugs partially obstructing the external auditory canals Chronic left mastoid air cell opacification D/ / Graham Whaley MD / Graham Whaley MD Interpreting Provider: Graham Whaley MD Chest X-Ray 06/28/19 13:08 IMPRESSION: No acute process. D/ / Rush Marcos MD / Rush Marcos MD Interpreting Provider: Rush Marcos MD Checklist - LKW: 3-4.5 hrs Add. Warnings/Precautions Patient/family understanding: The patient/family members have been counseled and understood the risk, benefit, and alternatives of treatment. Critical Care Time Critical Care Time: Yes Total Critical Care Time: 50 Attestation: As this patient did present with signs and symptoms of potential life- threatening illness requiring my urgent intervention, total critical care time in this patient's care has been 50 minutes, not withstanding separately reportable procedures.
[2019-06-28] MEDS ORDERED: 0.9 % Sodium Chloride 1,000 ML IVC SCH (13:15)
[2019-06-28 13:30] LABS: Bilirubin,Urine Negative (Negative); Blood,Urine Negative (Negative); Clarity,Urine Slightly Cloudy (Clear); Color,Urine Yellow (Yellow); Glucose,Urine (UA) Normal (Normal); Ketones,Urine Negative (Negative); Leukocyte Esterase,Urine Moderate (Negative); Nitrite,Urine Positive (Negative); PH,Urine 8.5 pH Units (5.0-8.0); Protein,Urine 30 mg/dL (Neg-Trace); Specific Gravity,Urine 1.015 (1.010-1.025); Urobilinogen,Urine Normal (Normal)
[2019-06-28 13:35] LABS: INR 1.1; Prothrombin Time 12.3 Seconds (9.4-12.1)
[2019-06-28 13:38] LABS: Activated Partial Thrombo Time 39.1 Seconds (26.0-36.0)
[2019-06-28 13:43] LABS: Albumin 3.8 g/dL (3.5-5.7); Albumin/Globulin Ratio 1.5 (1.1-2.2); Bilirubin,Direct 0.1 mg/dL (0.0-0.2); Bilirubin,Indirect 0.5 mg/dL (0.0-1.2); Bilirubin,Total 0.6 mg/dL (0.3-1.0); Globulin 2.6 g/dL (2.4-3.5); Phenytoin (Dilantin) 3.5 mcg/mL (10.0-20.0); Total Protein 6.4 g/dL (6.4-8.9)
[2019-06-28 13:45] LABS: Amorphous Sediment,Urine Many (Few); Bacteria,Urine Many per hpf (None-Few); Mucus,Urine Moderate (Few); Squamous Epithelial Cell,Urine Few per lpf (None-Few); WBC,Urine TNTC per hpf (0-3)
[2019-06-28] MEDS ORDERED: Naloxone 0.4 MG/ML INJ IVP PRN (15:25)
[2019-06-28] MEDS ORDERED: Ondansetron ODT 4 MG TAB.RAPDIS SL PRN (15:25)
[2019-06-28] MEDS: 0.9 % Sodium Chloride 1,000 ML IVC SCH ×2 (16:00→23:30)
--- NOTE | 2019-06-28 16:55 | Internal Med History&Physical ---
Date of Encounter: 06/28/19 Time of Encounter: 16:25 Assessment and Plan (1) Altered mental status Current visit: Yes Status: Acute History of recent meningitis. She will be given empiric vancomycin and Rocephin with acyclovir. Lactobacillus will be added. Records from her [facility] stay will be obtained and further workup done as needed. Qualifiers: Altered mental status type: transient alteration of awareness Qualified Code(s): R40.4 - Transient alteration of awareness Internal Medicine - H&P: HPI Chief complaint: Mental status change Admitted From: Emergency Dept Plans for Post Hospital Care: Transfer [facility] Care History of present illness: Ms. Rawls is a 83 year old female who was sent from a local SNF after staff reported decreased responsiveness onset today. She had no specific complaints but would not respond in normal fashion to questions. She was evaluated in emergency room and was felt to have possible UTI. She was admitted to [facility] floor for ongoing care needs. She cannot give reliable history because of confusion. She was hospitalized at [facility] May 13July following a syncopal episode and altered mental status. LP was done in emergency room with growth of Micrococcus luteus and Moraxella Osloensis on CSF culture. 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 She was started on antibiotics and acyclovir and transferred to [facility] after worsening mental status was noted. Report of available records state she was diagnosed with seizure disorder many years ago. Brain MRI 05/13/2019 showed multiple remote supratentorial and infratentorial microhemorrhages suggesting long-standing hypertension. There was remote lacunar infarct in the omar and moderate chronic small vessel ischemic changes. Review of SNF records show diagnosis of encephalopathy NOS. Past Med Surg Social Fam HX - Past Medical History Medical history: CVA, dementia, GERD, hyperlipidemia, hypertension, seizures, other Psychiatric history: no psych history - Past Surgical History Surgical History: cholecystectomy, hysterectomy - Social History Smoking Status: Never smoker Smokeless Tobacco Status: No Alcohol use: none Drug use: none Internal Medicine - H&P: Meds Phenytoin ER [Dilantin ER] 100 mg PO TID 04/22/16 [History] Loratadine [Allergy Relief] 10 mg PO DAILY 02/16/18 [History] Aspirin [Lo-Dose Aspirin EC] 81 mg PO DAILY 05/13/19 [History] Lisinopril [Zestril] 10 mg PO DAILY 05/13/19 [History] Sertraline [Zoloft] 25 mg PO DAILY 05/13/19 [History] Allergy/AdvReac Type Severity Reaction Status Date / Time aspirin AdvReac See Verified 02/16/18 12:58 Comments All Systems PM: A 10-system review of systems was performed and is negative for pertinent findings except as documented above in the HPI. Review of systems: Review of systems from her April 2019 [facility] hospitalization were reviewed and revised as below. Gen.: Her weight has decreased from 68.492 kg on 05/13/2019 to admission weight of 64.864 kg at present. Cardiovascular: She thinks she has a diagnosis of hypertension. She denies ME heart failure angina DVT or pulmonary embolus Respiratory: She is a lifelong nonsmoker and denies chronic lung disease GI: She denies disorders of her liver gallbladder or exocrine pancreas : She denies hematuria dysuria or kidney stones Neurologic: As per history of present illness Endocrine: She denies diabetes thyroid disease or hyperlipidemia Hematology/oncology: She denies blood disorders cancers or anemia Psychiatric: She states her several months ago and she feels depressed. She denies other mental health diagnoses. Mus[place] skeletal: She denies arthritis gout or other bone joint or muscle disorders. - Constitutional Vitals: Temp Pulse Resp BP Pulse Ox 99.5 F 92 19 135/75 96 06/28/19 16:24 06/28/19 16:24 06/28/19 16:24 06/28/19 16:24 06/28/19 16:24 Exam: Gen.: She is a well-developed well-nourished female lying in bed who appears in no acute distress. She denies pain HEENT: Head is atraumatic and normal cephalic. Eyes: EOMI. There is no scleral icterus. Mouth: Mucosa is dry. Neck: She reports mild discomfort on neck flexion. There is no thyromegaly or adenopathy noted. Heart: Regular without murmurs gallops or ectopics Lungs: No wheezes or crackles are heard. Abdomen: Soft and nontender. No masses or guarding are noted. Extremities: There is no cyanosis edema or clubbing noted. Dorsalis pedis and posterior tibial pulses are trace to 1+ palpable bilaterally. Neurologic: Mental status: She does not know her age or date of . She knows her name and states [facility]. Cranial nerves: Smile is symmetric. Forehead wrinkles bilaterally. Tongue protrudes midline. EOMI. Motor: There is no pronator drift. Cerebellar: Finger to nose is intact bilaterally. Skin: Warm and dry. No rashes are noted. Internal Med - H&P Results - Labs Labs: Liver Function 06/28/19 Range/Units 13:20 Total Bilirubin 0.6 (0.3-1.0) mg/dL Direct Bilirubin 0.1 (0.0-0.2) mg/dL AST 18 (13-39) Units/L ALT 12 (7-52) Units/L Alkaline Phosphatase 146 H (34-104) Units/L Albumin 3.8 (3.5-5.7) g/dL Urine 06/28/19 Range/Units 13:25 Urine Color Yellow (Yellow) Urine Clarity Slightly Cloudy A (Clear) Urine pH 8.5 H (5.0-8.0) pH Units Ur Specific [place] 1.015 (1.010-1.025) Urine Protein 30 H (Neg-Trace) mg/dL Urine Glucose (UA) Normal (Normal) mg/dL - Impressions ITS Impressions Head CT 06/28/19 13:07 IMPRESSION: No acute intracranial abnormality. Sequela of chronic small vessel ischemic change. Bilateral cerumen plugs partially obstructing the external auditory canals. Chronic left mastoid air cell opacification. D/ / 06/28/2019 14:09:00 Graham Whaley MD / felicia Interpreting Provider: Graham Whaley MD Chest X-Ray 06/28/19 13:08 IMPRESSION: No acute process. D/ / Rush Marcos MD / Rush Marcos MD Interpreting Provider: Rush Marcos MD
[2019-06-28] MEDS: Acyclovir 600 MG in D5% in Water 250 ML IVPB SCH (17:55)
[2019-06-28] MEDS ORDERED: Acyclovir 600 MG in D5% in Water 100 ML IVPB SCH (18:00)
[2019-06-29] MEDS: Acyclovir 600 MG in D5% in Water 250 ML IVPB SCH ×3 (01:50→17:56)
[2019-06-29] MEDS: cefTRIAXone 2,000 MG in Water for inj. (sterile) 20 ML IVPB SCH ×2 (01:50→15:12)
[2019-06-29 05:42] LABS: Basophils % 0.4 %; Eosinophils # 0.3 K/mcL (0.0-0.6); Eosinophils % 4.4 %; Hematocrit 32.3 % (35.3-44.9); Immature Granulocytes % 0.3 % (0-4); Lymphocytes # 1.3 K/mcL (0.6-4.6); Lymphocytes % 17.8 %; Mean Corpuscular HGB Conc 34.1 g/dL (31.6-35.5); Mean Corpuscular Hemoglobin 32.2 pg (28.0-33.3); Mean Corpuscular Volume 94.4 fL (83.0-100.0); Mean Platelet Volume 9.1 fL (9.4-12.4); Monocytes # 0.8 K/mcL (0.0-1.3); Monocytes % 11.2 %; Neutrophils # 4.8 K/mcL (1.6-8.9); Platelet Count 118 K/mcL (140-400); Red Blood Count 3.42 M/mcL (3.82-4.97); Red Cell Distribution Width 15.2 % (11.5-14.5); Segmented Neutrophils % 65.9 %; White Blood Count 7.3 K/mcL (4.3-11.1)
[2019-06-29 07:32] LABS: Alanine Aminotransferase 10 Units/L (7-52); Albumin 3.1 g/dL (3.5-5.7); Albumin/Globulin Ratio 1.4 (1.1-2.2); Alkaline Phosphatase 119 Units/L (34-104); Aspartate Amino Transferase 15 Units/L (13-39); BUN/Creatinine Ratio 17 (6-26); Bilirubin,Total 0.4 mg/dL (0.3-1.0); Blood Urea Nitrogen 10 mg/dL (8-23); Carbon Dioxide 24 mEq/L (23-29); Chloride 108 mEq/L (98-107); Globulin 2.2 g/dL (2.4-3.5); Glucose 98 mg/dL (70-105); Osmolality,Calculated 287 (280-300); Potassium 3.6 mEq/L (3.5-5.1); Sodium 139 mEq/L (136-145); Total Protein 5.3 g/dL (6.4-8.9); eGFR For African Americans > 60 (> 60); eGFR For Non-African Americans > 60 (> 60)
[2019-06-29] MEDS: 0.9 % Sodium Chloride 1,000 ML IVC SCH ×2 (07:36→19:33)
[2019-06-29] MEDS ORDERED: cefTRIAXone 2,000 MG in Water for inj. (sterile) 20 ML IVPB SCH (13:00)
[2019-06-30] MEDS: cefTRIAXone 2,000 MG in Water for inj. (sterile) 20 ML IVPB SCH ×2 (01:05→13:16)
[2019-06-30] MEDS: Acyclovir 600 MG in D5% in Water 250 ML IVPB SCH ×3 (01:06→17:04)
--- NOTE | 2019-06-30 10:11 | Internal Med Progress Note ---
Date of Encounter: 06/29/19 Time of Encounter: 10:00 - Assessment and plan (1) Altered mental status Current Visit: Yes Status: Acute Assessment and plan: I spoke with her son who states he will be coming later today from [facility] for a visit. He will see if there has been significant change in her mental status and further plans will be made for treatment. Continue IV Rocephin, vancomycin, and acyclovir at this time. Qualifiers: Altered mental status type: transient alteration of awareness Qualified Code(s): R40.4 - Transient alteration of awareness - Subjective Interval history: June 29. She has no new complaints. - Constitutional Vitals: Temp Pulse Resp BP Pulse Ox 98.3 F 89 24 162/84 95 06/30/19 06:25 06/30/19 06:25 06/30/19 06:25 06/30/19 06:25 06/30/19 06:25 Exam: She does not know her age or date of . She is slightly more alert today. I reviewed her medications and lab results. Internal Medicine: Result - Labs CBC & Chem 7: 06/29/19 05:10 06/29/19 05:10 - ABG Interpretation ABG results: PT/INR, D-dimer PT 12.3 Seconds (9.4-12.1) H 06/28/19 13:20 Consult Discharge Plan - Plan Referrals: Julito Kim MD [Primary Care Provider] - 1 week
[2019-06-30] MEDS: 0.9 % Sodium Chloride 1,000 ML IVC SCH (10:27)
[2019-06-30 16:11] LABS: Basophils % 0.4 %; Eosinophils # 0.3 K/mcL (0.0-0.6); Eosinophils % 3.2 %; Hemoglobin 12.7 g/dL (11.5-15.4); Immature Granulocytes % 0.3 % (0-4); Lymphocytes # 0.8 K/mcL (0.6-4.6); Lymphocytes % 10.5 %; Mean Corpuscular HGB Conc 35.3 g/dL (31.6-35.5); Mean Corpuscular Hemoglobin 32.2 pg (28.0-33.3); Mean Corpuscular Volume 91.1 fL (83.0-100.0); Mean Platelet Volume 8.4 fL (9.4-12.4); Monocytes # 0.7 K/mcL (0.0-1.3); Monocytes % 9.5 %; Neutrophils # 5.9 K/mcL (1.6-8.9); Platelet Count 139 K/mcL (140-400); Red Blood Count 3.95 M/mcL (3.82-4.97); Red Cell Distribution Width 14.8 % (11.5-14.5); Segmented Neutrophils % 76.1 %; White Blood Count 7.7 K/mcL (4.3-11.1)
[2019-06-30 16:26] LABS: BUN/Creatinine Ratio 13 (6-26); Blood Urea Nitrogen 7 mg/dL (8-23); Calcium 8.8 mg/dL (8.6-10.3); Carbon Dioxide 27 mEq/L (23-29); Chloride 105 mEq/L (98-107); Glucose 107 mg/dL (70-105); Osmolality,Calculated 290 (280-300); Potassium 3.2 mEq/L (3.5-5.1); Sodium 141 mEq/L (136-145); eGFR For African Americans > 60 (> 60); eGFR For Non-African Americans > 60 (> 60)
--- NOTE | 2019-06-30 17:39 | Internal Med Progress Note ---
Date of Encounter: 06/30/19 Time of Encounter: 17:32 - Assessment and plan (1) Altered mental status Current Visit: Yes Status: Acute Assessment and plan: June 29. I spoke with her son who states he will be coming later today from [facility] for a visit. He will see if there has been significant change in her mental status and further plans will be made for treatment. Continue IV Rocephin, vancomycin, and acyclovir at this time. June 30. I spoke with her son at some length by phone last evening. He states there is been some mental status change since he saw her evening of June 27. I explained the current treatment rationale and he was content to continue present Rx without transfer to another facility. Qualifiers: Altered mental status type: transient alteration of awareness Qualified Code(s): R40.4 - Transient alteration of awareness (2) Hypokalemia Current Visit: Yes Status: Acute Assessment and plan: June 30. Potassium level low at 3.2 today. Rx potassium chloride supplement. (3) Agitation Current Visit: Yes Status: Acute Assessment and plan: June 30. Xanax will be ordered. - Subjective Interval history: June 29. She has no new complaints. June 30. She has no new complaints and denies pain or dyspnea. - Constitutional Vitals: Temp Pulse Resp BP Pulse Ox 98.4 F 96 18 160/77 96 06/30/19 14:38 06/30/19 14:38 06/30/19 14:38 06/30/19 14:38 06/30/19 14:38 Exam: She is resting comfortably in bed and appears in no acute distress except slightly agitated. She does not know her age or year of . She does not know my name but seems to recognize me. I reviewed her medications and lab results. Internal Medicine: Result - Labs CBC & Chem 7: 06/30/19 16:03 06/30/19 16:03 Labs: Short CBC 06/30/19 Range/Units 16:03 WBC 7.7 (4.3-11.1) K/mcL Hgb 12.7 D (11.5-15.4) g/dL Hct 36.0 (35.3-44.9) % Plt Count 139 L (140-400) K/mcL Neutrophils # 5.9 (1.6-8.9) K/mcL BMP 06/30/19 16:03 Sodium 141 Potassium 3.2 L Chloride 105 Carbon Dioxide 27 BUN 7 L Creatinine 0.53 L Glucose 107 H Calcium 8.8 - ABG Interpretation ABG results: PT/INR, D-dimer PT 12.3 Seconds (9.4-12.1) H 06/28/19 13:20 Consult Discharge Plan - Plan Referrals: Julito Kim MD [Primary Care Provider] - 1 week
[2019-06-30] MEDS: ALPRAZolam 0.25 MG TABLET PO PRN (18:01)
[2019-06-30 21:17] LABS: C-Reactive Protein < 5 mg/L (Less than 10)
[2019-07-01] MEDS: ALPRAZolam 0.25 MG TABLET PO PRN ×3 (00:15→21:30)
[2019-07-01] MEDS: cefTRIAXone 2,000 MG in Water for inj. (sterile) 20 ML IVPB SCH ×2 (01:28→13:32)
[2019-07-01] MEDS: Acyclovir 600 MG in D5% in Water 250 ML IVPB SCH ×3 (01:29→17:16)
[2019-07-01 06:55] LABS: Basophils # 0.1 K/mcL (0.0-0.2); Basophils % 0.6 %; Eosinophils # 0.5 K/mcL (0.0-0.6); Eosinophils % 4.9 %; Hematocrit 38.5 % (35.3-44.9); Hemoglobin 13.4 g/dL (11.5-15.4); Immature Granulocytes % 0.3 % (0-4); Lymphocytes # 1.7 K/mcL (0.6-4.6); Lymphocytes % 16.6 %; Mean Corpuscular HGB Conc 34.8 g/dL (31.6-35.5); Mean Corpuscular Hemoglobin 31.8 pg (28.0-33.3); Mean Corpuscular Volume 91.4 fL (83.0-100.0); Mean Platelet Volume 9.4 fL (9.4-12.4); Monocytes # 1.2 K/mcL (0.0-1.3); Monocytes % 11.3 %; Platelet Count 186 K/mcL (140-400); Red Blood Count 4.21 M/mcL (3.82-4.97); Red Cell Distribution Width 14.5 % (11.5-14.5); Segmented Neutrophils % 66.3 %; White Blood Count 10.5 K/mcL (4.3-11.1)
[2019-07-01 07:11] LABS: Alanine Aminotransferase 22 Units/L (7-52); Albumin 3.7 g/dL (3.5-5.7); Albumin/Globulin Ratio 1.2 (1.1-2.2); Alkaline Phosphatase 142 Units/L (34-104); Aspartate Amino Transferase 29 Units/L (13-39); BUN/Creatinine Ratio 13 (6-26); Bilirubin,Total 0.7 mg/dL (0.3-1.0); Blood Urea Nitrogen 7 mg/dL (8-23); Calcium 9.2 mg/dL (8.6-10.3); Carbon Dioxide 24 mEq/L (23-29); Chloride 103 mEq/L (98-107); Globulin 3.1 g/dL (2.4-3.5); Glucose 110 mg/dL (70-105); Osmolality,Calculated 289 (280-300); Potassium 3.3 mEq/L (3.5-5.1); Sodium 140 mEq/L (136-145); Total Protein 6.8 g/dL (6.4-8.9); eGFR For African Americans > 60 (> 60); eGFR For Non-African Americans > 60 (> 60)
--- NOTE | 2019-07-01 09:22 | Internal Med Progress Note ---
Date of Encounter: 07/01/19 Time of Encounter: 09:10 - Assessment and plan (1) Altered mental status Current Visit: Yes Status: Acute Assessment and plan: June 29. I spoke with her son who states he will be coming later today from [facility] for a visit. He will see if there has been significant change in her mental status and further plans will be made for treatment. Continue IV Rocephin, vancomycin, and acyclovir at this time. June 30. I spoke with her son at some length by phone last evening. He states there is been some mental status change since he saw her evening of June 27. I explained the current treatment rationale and he was content to continue present Rx without transfer to another facility. July 01. WBC remains normal without left shift present. She remains afebrile. Pro-calcitonin pending. Suspect urine culture report reflects colonization rather than true pathogen. Qualifiers: Altered mental status type: transient alteration of awareness Qualified Code(s): R40.4 - Transient alteration of awareness (2) Hypokalemia Current Visit: Yes Status: Acute Assessment and plan: June 30. Potassium level low at 3.2 today. Rx potassium chloride supplement. July 01. Potassium level improved slightly to 3.3. Continue supplemental KCl. (3) Agitation Current Visit: Yes Status: Acute Assessment and plan: June 30. Xanax will be ordered. (4) Hypertension Current Visit: Yes Status: Chronic Assessment and plan: July 01. Metoprolol will be started and blood pressure monitored. Qualifiers: Hypertension type: essential hypertension Qualified Code(s): I10 - Essential (primary) hypertension - Subjective Interval history: June 29. She has no new complaints. June 30. She has no new complaints and denies pain or dyspnea. July 01. No new problems have arisen. - Constitutional Vitals: Temp Pulse Resp BP Pulse Ox 99.6 F 101 18 125/72 96 07/01/19 06:28 07/01/19 06:28 07/01/19 06:28 07/01/19 06:28 07/01/19 06:28 Exam: She is sitting in bed and appears in no acute distress. She is pleasant but rambling in conversation. Heart is regular with rate approximately 116/m. Lungs are clear anteriorly. Extremities show no edema. I reviewed her medications and lab results. Internal Medicine: Result - Labs CBC & Chem 7: 07/01/19 05:04 07/01/19 05:04 Labs: Short CBC 06/30/19 07/01/19 Range/Units 16:03 05:04 WBC 7.7 10.5 (4.3-11.1) K/mcL Hgb 12.7 D 13.4 (11.5-15.4) g/dL Hct 36.0 38.5 (35.3-44.9) % Plt Count 139 L 186 (140-400) K/mcL Neutrophils # 5.9 7.0 (1.6-8.9) K/mcL BMP 06/30/19 07/01/19 16:03 05:04 Sodium 141 140 Potassium 3.2 L 3.3 L Chloride 105 103 Carbon Dioxide 27 24 BUN 7 L 7 L Creatinine 0.53 L 0.54 L Glucose 107 H 110 H Calcium 8.8 9.2 Liver Function 07/01/19 Range/Units 05:04 Total Bilirubin 0.7 (0.3-1.0) mg/dL AST 29 (13-39) Units/L ALT 22 (7-52) Units/L Alkaline Phosphatase 142 H (34-104) Units/L Albumin 3.7 (3.5-5.7) g/dL - ABG Interpretation ABG results: PT/INR, D-dimer PT 12.3 Seconds (9.4-12.1) H 06/28/19 13:20 Consult Discharge Plan - Plan Referrals: Julito Kim MD [Primary Care Provider] - 1 week
[2019-07-01] MEDS: Lactobacillus 1 EACH CAP.SPRINK PO SCH ×2 (10:48→21:29)
[2019-07-01] MEDS: ALPRAZolam 0.5 MG TABLET PO SCH ×2 (10:48→17:16)
[2019-07-02] MEDS: ALPRAZolam 0.5 MG TABLET PO SCH ×3 (00:20→17:00)
[2019-07-02] MEDS: cefTRIAXone 2,000 MG in Water for inj. (sterile) 20 ML IVPB SCH ×2 (00:20→13:08)
[2019-07-02] MEDS: Acyclovir 600 MG in D5% in Water 250 ML IVPB SCH ×3 (01:51→16:59)
[2019-07-02] MEDS: Lactobacillus 1 EACH CAP.SPRINK PO SCH (09:25)
--- NOTE | 2019-07-02 16:57 | Internal Med Progress Note ---
Date of Encounter: 07/02/19 Time of Encounter: 14:00 - Assessment and plan (1) Altered mental status Current Visit: Yes Status: Acute Assessment and plan: June 29. I spoke with her son who states he will be coming later today from [facility] for a visit. He will see if there has been significant change in her mental status and further plans will be made for treatment. Continue IV Rocephin, vancomycin, and acyclovir at this time. June 30. I spoke with her son at some length by phone last evening. He states there is been some mental status change since he saw her evening of June 27. I explained the current treatment rationale and he was content to continue present Rx without transfer to another facility. July 01. WBC remains normal without left shift present. She remains afebrile. Pro-calcitonin pending. Suspect urine culture report reflects colonization rather than true pathogen. July 02. Repeat pro-calcitonin level WNL. She remains asymptomatic from bacturia. Discontinue Rocephin and vancomycin. Qualifiers: Altered mental status type: transient alteration of awareness Qualified Code(s): R40.4 - Transient alteration of awareness (2) Hypokalemia Current Visit: Yes Status: Acute Assessment and plan: June 30. Potassium level low at 3.2 today. Rx potassium chloride supplement. July 01. Potassium level improved slightly to 3.3. Continue supplemental KCl. July 02. Recheck labs in a.m. (3) Agitation Current Visit: Yes Status: Acute Assessment and plan: June 30. Xanax will be ordered. July 02. Reduced scheduled Xanax to 0.25 mg 3 times a day to avoid oversedation/confusion. (4) Hypertension Current Visit: Yes Status: Chronic Assessment and plan: July 01. Metoprolol will be started and blood pressure monitored. Qualifiers: Hypertension type: essential hypertension Qualified Code(s): I10 - Essential (primary) hypertension - Subjective Interval history: June 29. She has no new complaints. June 30. She has no new complaints and denies pain or dyspnea. July 01. No new problems have arisen. July 02. No new problems have arisen. - Constitutional Vitals: Temp Pulse Resp BP Pulse Ox 98.7 F 101 18 132/70 95 07/02/19 14:03 07/02/19 14:03 07/02/19 14:03 07/02/19 14:03 07/02/19 14:03 Exam: She is lying in bed mumbling incoherently. She appears in no acute distress. I reviewed her medications and past lab results. Internal Medicine: Result - Labs CBC & Chem 7: 07/01/19 05:04 07/01/19 05:04 - ABG Interpretation ABG results: PT/INR, D-dimer PT 12.3 Seconds (9.4-12.1) H 06/28/19 13:20 Consult Discharge Plan - Plan Referrals: Julito Kim MD [Primary Care Provider] - 1 week
[2019-07-02] MEDS: *HR* Enoxaparin 40 MG/0.4 ML SYRINGE SQ SCH (18:45)
[2019-07-03] MEDS: ALPRAZolam 0.25 MG TABLET PO SCH ×2 (00:53→10:09)
[2019-07-03 00:57] LABS: ABG Base Excess 0 mEq/L (-2 to 3); ABG HCO3 23 mEq/L (21-27); ABG Oxygen Saturation 97 % (95-98); ABG PCO2 32 mmHg (35-45); ABG PH 7.46 pH Units (7.32-7.45); ABG PO2 80 mmHg (85-104); ABG TCO2 24 mEq/L (20-26)
[2019-07-03] MEDS: Acyclovir 600 MG in D5% in Water 250 ML IVPB SCH ×2 (02:50→09:57)
[2019-07-03] MEDS: *HR* Enoxaparin 40 MG/0.4 ML SYRINGE SQ SCH (05:08)
[2019-07-03 05:46] LABS: Basophils # 0.1 K/mcL (0.0-0.2); Basophils % 0.6 %; Eosinophils # 0.4 K/mcL (0.0-0.6); Eosinophils % 4.3 %; Hematocrit 35.5 % (35.3-44.9); Hemoglobin 12.1 g/dL (11.5-15.4); Immature Granulocytes % 0.5 % (0-4); Lymphocytes # 1.4 K/mcL (0.6-4.6); Lymphocytes % 13.9 %; Mean Corpuscular HGB Conc 34.1 g/dL (31.6-35.5); Mean Corpuscular Hemoglobin 32.1 pg (28.0-33.3); Mean Corpuscular Volume 94.2 fL (83.0-100.0); Mean Platelet Volume 9.3 fL (9.4-12.4); Monocytes # 1.2 K/mcL (0.0-1.3); Monocytes % 11.8 %; Platelet Count 186 K/mcL (140-400); Red Blood Count 3.77 M/mcL (3.82-4.97); Red Cell Distribution Width 15.8 % (11.5-14.5); Segmented Neutrophils % 68.9 %; White Blood Count 10.2 K/mcL (4.3-11.1)
[2019-07-03 06:05] LABS: Calcium 8.5 mg/dL (8.6-10.3); Potassium 4.1 mEq/L (3.5-5.1)
[2019-07-03] MEDS ORDERED: Aminoglycoside Consult 1 EACH MC ONE (10:14)
--- NOTE | 2019-07-03 10:57 | Internal Med Progress Note ---
Date of Encounter: 07/03/19 Time of Encounter: 10:50 - Assessment and plan (1) Altered mental status Current Visit: Yes Status: Acute Assessment and plan: June 29. I spoke with her son who states he will be coming later today from [facility] for a visit. He will see if there has been significant change in her mental status and further plans will be made for treatment. Continue IV Rocephin, vancomycin, and acyclovir at this time. June 30. I spoke with her son at some length by phone last evening. He states there is been some mental status change since he saw her evening of June 27. I explained the current treatment rationale and he was content to continue present Rx without transfer to another facility. July 01. WBC remains normal without left shift present. She remains afebrile. Pro-calcitonin pending. Suspect urine culture report reflects colonization rather than true pathogen. July 02. Repeat pro-calcitonin level WNL. She remains asymptomatic from bacturia. Discontinue Rocephin and vancomycin. July 03. Lethargy has worsened the past 24 hours. Scheduled Xanax will be held. Acyclovir will be discontinued. Qualifiers: Altered mental status type: transient alteration of awareness Qualified Code(s): R40.4 - Transient alteration of awareness (2) Hypokalemia Current Visit: Yes Status: Acute Assessment and plan: June 30. Potassium level low at 3.2 today. Rx potassium chloride supplement. July 01. Potassium level improved slightly to 3.3. Continue supplemental KCl. July 02. Recheck labs in a.m. July 03. Potassium normal at 4.1. Continue present Rx. (3) Agitation Current Visit: Yes Status: Acute Assessment and plan: June 30. Xanax will be ordered. July 02. Reduced scheduled Xanax to 0.25 mg 3 times a day to avoid oversedation/confusion. July 03. Hold scheduled Xanax due to sedation. (4) Hypertension Current Visit: Yes Status: Chronic Assessment and plan: July 01. Metoprolol will be started and blood pressure monitored. Qualifiers: Hypertension type: essential hypertension Qualified Code(s): I10 - Essential (primary) hypertension (5) Acute renal failure Current Visit: Yes Status: Acute Assessment and plan: July 03. BUN and creatinine have risen 27 and 2.5 on respectively. IV fluids will be started. Qualifiers: Acute renal failure type: unspecified Qualified Code(s): N17.9 - Acute kidney failure, unspecified - Subjective Interval history: June 29. She has no new complaints. June 30. She has no new complaints and denies pain or dyspnea. July 01. No new problems have arisen. July 02. No new problems have arisen. July 03. She had decreased responsiveness past 24 hours. - Constitutional Vitals: Temp Pulse Resp BP Pulse Ox 98.4 F 105 27 144/75 93 07/03/19 07:21 07/03/19 07:21 07/03/19 07:21 07/03/19 07:21 07/03/19 07:21 Exam: She is resting comfortably in bed. She is very lethargic and does not respond significantly to voice or light touch. I reviewed her medications and lab results. Internal Medicine: Result - Labs CBC & Chem 7: 07/03/19 04:36 07/03/19 04:36 Labs: Short CBC 07/03/19 Range/Units 04:36 WBC 10.2 (4.3-11.1) K/mcL Hgb 12.1 (11.5-15.4) g/dL Hct 35.5 (35.3-44.9) % Plt Count 186 (140-400) K/mcL Neutrophils # 7.0 (1.6-8.9) K/mcL BMP 07/03/19 04:36 Sodium 137 Potassium 4.1 Chloride 103 Carbon Dioxide 24 BUN 27 H Creatinine 2.51 H Glucose 129 H Calcium 8.5 L - ABG Interpretation ABG results: ABG ABG pH 7.46 pH Units (7.32-7.45) H 07/03/19 00:54 ABG pCO2 32 mmHg (35-45) L 07/03/19 00:54 ABG pO2 80 mmHg (85-104) L 07/03/19 00:54 ABG O2 Saturation 97 % (95-98) 07/03/19 00:54 PT/INR, D-dimer PT 12.3 Seconds (9.4-12.1) H 06/28/19 13:20 - VTE Documentation of Mechanical Device: Intermittent pneumatic compression device Consult Discharge Plan - Plan Referrals: Julito Kim MD [Primary Care Provider] - 1 week
[2019-07-04 05:16] LABS: Basophils % 0.4 %; Eosinophils # 0.2 K/mcL (0.0-0.6); Eosinophils % 2.1 %; Hematocrit 36.2 % (35.3-44.9); Hemoglobin 12.6 g/dL (11.5-15.4); Immature Granulocytes % 0.3 % (0-4); Lymphocytes # 0.9 K/mcL (0.6-4.6); Lymphocytes % 7.6 %; Mean Corpuscular HGB Conc 34.8 g/dL (31.6-35.5); Mean Corpuscular Hemoglobin 32.6 pg (28.0-33.3); Mean Corpuscular Volume 93.5 fL (83.0-100.0); Monocytes % 8.8 %; Neutrophils # 9.2 K/mcL (1.6-8.9); Platelet Count 166 K/mcL (140-400); Red Blood Count 3.87 M/mcL (3.82-4.97); Red Cell Distribution Width 15.7 % (11.5-14.5); Segmented Neutrophils % 80.8 %; White Blood Count 11.4 K/mcL (4.3-11.1)
[2019-07-04 05:17] LABS: ABG Base Excess -4 mEq/L (-2 to 3); ABG HCO3 20 mEq/L (21-27); ABG Oxygen Saturation 98 % (95-98); ABG PCO2 32 mmHg (35-45); ABG PH 7.41 pH Units (7.32-7.45); ABG PO2 97 mmHg (85-104); ABG TCO2 21 mEq/L (20-26)
[2019-07-04 05:18] LABS: Basophils # 0.1 K/mcL (0.0-0.2)
[2019-07-04 05:35] LABS: Calcium 8.6 mg/dL (8.6-10.3); Potassium 4.3 mEq/L (3.5-5.1)
[2019-07-04] MEDS: *HR* Enoxaparin 30 MG/0.3 ML SYRINGE SQ SCH (06:30)
--- NOTE | 2019-07-04 17:15 | Discharge Summary ---
Date of Encounter: 07/04/19 Time of Encounter: 09:45 - Discharge Diagnosis (1) Altered mental status Priority: Primary Status: Acute Qualifiers: Altered mental status type: transient alteration of awareness Qualified Code(s): R40.4 - Transient alteration of awareness (2) Hypokalemia Priority: Secondary Status: Acute (3) Agitation Priority: Secondary Status: Acute (4) Hypertension Priority: Secondary Status: Chronic Qualifiers: Hypertension type: essential hypertension Qualified Code(s): I10 - Essential (primary) hypertension (5) Acute renal failure Priority: Secondary Status: Acute Qualifiers: Acute renal failure type: unspecified Qualified Code(s): N17.9 - Acute kidney failure, unspecified Hospital course: Ms. Rawls is a 83 year old female who was sent from a local SNF after staff reported decreased responsiveness onset today. She had no specific complaints but would not respond in normal fashion to questions. She was evaluated in emergency room and was felt to have possible UTI. She was admitted to [facility] floor for ongoing care needs. Initial orders were written by the emergency room physician. I saw her on June 28 and performed a history and physical. Knapp catheter was discontinued in emergency room. Urine culture obtained prior to removal returned showing Klebsiella pneumonia ESBL, VRE, and yeast species. I felt these were likely colonization and not true pathogens. She was started empirically on IV Rocephin and vancomycin and acyclovir for possible encephalitis/meningitis. I had a long discussion with her son the evening of June 29 and offered transfer at that time to [facility] for additional evaluation. Her son stated he wished her to remain at [facility] with present treatment plan for a few days and observe for improvement. She had some clinical improvement in mental status on the second and third hospital day. Pro-calcitonin level returned WNL 2 and antibiotics were discontinued July 02. On July 03 she was more lethargic. Xanax that had been given for agitation was held. Acyclovir was held also. Lab work showed BUN and creatinine 27 and 2.51 respectively. She was started on IV fluids. Creatinine had significant improved to 1.71 by the following day but she remained lethargic. There were no meningeal signs on neck flexion the morning of July 04. WBC had risen slightly to 11.4 with 80.8% segs. I spoke with her son the morning of July 04 and again offered transfer to [facility] versus returning to the SNF with comfort measures. He stated he would talk to his sister and give me an answer shortly. At approximately 1645 that afternoon no contact from family had been received. I tried to contact the son who did not answer the phone. I left a message stating I intended to transfer her to [facility] again unless word was received quickly to have her return to the [facility]. No word was received after approximately 30 minutes so contact with [facility] for transfer was completed. - Time Spent with Patient Total time spent providing and/or coordinating discharge services: - Discharge Medications Prescriptions: No Action Phenytoin ER [Dilantin ER] 100 mg PO TID Loratadine [Allergy Relief] 10 mg PO DAILY Lisinopril [Zestril] 10 mg PO DAILY Sertraline [Zoloft] 25 mg PO DAILY Aspirin [Lo-Dose Aspirin EC] 81 mg PO DAILY Home Medications: Phenytoin ER [Dilantin ER] 100 mg PO TID 04/22/16 [History] Loratadine [Allergy Relief] 10 mg PO DAILY 02/16/18 [History] Aspirin [Lo-Dose Aspirin EC] 81 mg PO DAILY 05/13/19 [History] Lisinopril [Zestril] 10 mg PO DAILY 05/13/19 [History] Sertraline [Zoloft] 25 mg PO DAILY 05/13/19 [History] Allergies/Adverse Reactions: Allergy/AdvReac Type Severity Reaction Status Date / Time aspirin AdvReac See Verified 02/16/18 12:58 Comments Date of admission: 07/02/19 18:22 Primary care physician: Julito Kim MD Consults: 06/29/19 09:55 Consult to Occupational Therapy [CONS] Routine Comment: Evaluate, develop and implement POC Reason for Consult: Weakness Does patient have active BEDREST order?: No Is patient medically & hemodynamically stable?: Yes Patient assessed for mobility or mobilized this visit?: Yes Consult to Physical Therapy [CONS] Routine Comment: Evaluate, develop and implement POC Reason for Consult: Weakness Does patient have active BEDREST order?: No Is patient medically & hemodynamically stable?: Yes Patient assessed for mobility or mobilized this visit?: Yes - Constitutional Vitals: Temp Pulse Resp BP Pulse Ox 98.7 F 105 20 147/73 95 07/04/19 14:36 07/04/19 14:36 07/04/19 14:36 07/04/19 14:36 07/04/19 14:36 - Patient Status Disposition: Transfer Other Condition: Fair - Discharge Instructions - VTE Documentation of Mechanical Device: Graduated compression elastic hosiery
[2019-07-05] MEDS: *HR* Enoxaparin 30 MG/0.3 ML SYRINGE SQ SCH (06:08)
[2019-07-05 13:53] VITALS: BP 129/68
--- NOTE | 2019-07-05 14:15 | Physician Discharge Referral ---
ExtendedCare Referral Info Transfer To: [facility] Provider in Charge: [place] Provider in Charge after Transfer: PCP (Julito Kim M.D.) - Diagnosis (1) Altered mental status Priority: Primary Status: Acute (2) Hypokalemia Priority: Secondary Status: Acute (3) Agitation Priority: Secondary Status: Acute (4) Hypertension Priority: Secondary Status: Chronic (5) Acute renal failure Priority: Secondary Status: Acute Prognosis: Poor Aware of Diagnosis: Family Aware of Prognosis: Family - Transfer Medications Prescriptions: LORazepam Oral Conc [Ativan Oral Conc] 2 mg PO Q2H PRN 7 Days #120 mls PRN Reason: Agitation Morphine Oral CONC [Roxanol] 0.5 ml PO Q1H PRN 7 Days #120 ml PRN Reason: Pain Home Medications: LORazepam Oral Conc [Ativan Oral Conc] 2 mg PO Q2H PRN 7 Days #120 mls 07/05/19 [Rx] Morphine Oral CONC [Roxanol] 0.5 ml PO Q1H PRN 7 Days #120 ml 07/05/19 [Rx] Allergies/Adverse Reactions: Allergy/AdvReac Type Severity Reaction Status Date / Time aspirin AdvReac See Verified 02/16/18 12:58 Comments - Respiratory Orders Smoking Cessation: Smoking cessation has been advised. For more information, call the [place] Tobacco Quit Line at 5-874-ZNZSNOW. - Advance Directives Code Status: DNR-Comfort Care - Mobility Orders Bedrest CERTIFICATION: I certify that the transfer of the above named patient to an Extended Care Facility is necessary for the continuing treatment of the diagnosis listed. The above information is true and accurate reflection of patient's current condition. Confidential - Redisclosure prohibited without a patient's written consent.
== END 2019-07-05 16:11 | disposition other institution (70) | DRG 757 ==
LOC: INPPIK 13:04 → EMEROOPIK 13:04 → INPPIK 15:41
PROVIDERS: ADMIT Internal Medicine; ATTEND Internal Medicine